=== PATIENT | female | born 1955 | race Caucasian/White ===

== ENCOUNTER 2019-07-26 22:26 | Emergency (ER) | payer OTHER ==
[~2019-07-26] VITALS: Ht 170.2 cm; Wt 68.0 kg
[2019-07-26 22:46] VITALS: Ht 170.2 cm; Wt 68.0 kg
[2019-07-27 01:21] VITALS: BP 184/97
== END 2019-07-27 01:21 | disposition home or self-care (01) ==
LOC: ED 22:26
DX: T75.89XA Other specified effects of external causes, initial encounter (principal); H57.89 Other specified disorders of eye and adnexa; I10 Essential (primary) hypertension; Z88.0 Allergy status to penicillin; X58.XXXA Exposure to other specified factors, initial encounter; Y93.89 Activity, other specified; Y92.89 Other specified places as the place of occurrence of the external cause; Y99.8 Other external cause status
CPT/HCPCS: J1885; Q0162